=== PATIENT | female | born 1940 | race American Indian/Alaskan Native ===

== ENCOUNTER 2017-11-20 15:10 | Outpatient (CLI) | payer MEDICARE ==
[2017-11-20 15:28] LABS: Hematocrit 34.8 % (30.3-42.9); Hemoglobin 11.2 gm/dl (10.1-14.3); Mean Corpuscular HGB Conc 32 % (30-34); Mean Corpuscular Hemoglobin 27 pg (28-32); Mean Corpuscular Volume 84 fl (79-97); Platelet Count 161 K/mm3 (140-440); Red Blood Count 4.14 M/mm3 (3.65-5.03); Red Cell Distribution Width 15.5 % (13.2-15.2)
[2017-11-20 15:46] LABS: Alanine Aminotransferase 8 units/L (7-56); Calcium 9.8 mg/dL (8.4-10.2); Hemolysis Index 2
[2017-11-20 15:57] LABS: Free T4 (Free Thyroxine) 1.5 ng/dL (0.76-1.46)
[2017-11-20 16:13] LABS: BUN/Creatinine Ratio 13; Blood Urea Nitrogen 9 mg/dL (7-17)
== END 2017-11-20 15:11 | disposition home or self-care (01) ==
LOC: LAB 15:10
PROVIDERS: ATTEND Specialist
DX: G31.84 Mild cognitive impairment of uncertain or unknown etiology (principal); I10 Essential (primary) hypertension; K21.9 Gastro-esophageal reflux disease without esophagitis; E03.9 Hypothyroidism, unspecified
CPT/HCPCS: 36415; 80053; 82607; 82747; 84439; 84443; 85027